=== PATIENT | male | born 1955 | race Caucasian/White ===

== ENCOUNTER → 2017-05-07 11:08 | Outpatient (CLI) | payer MEDICARE, SELFPAY ==
[2017-05-07 12:42] LABS: Absolute Lymphocyte Count 1.14 X10^3/ul (0.83-4.51); Basophil# 0.04 X10^3/uL; Basophil% 1.1 % (0-1); Eosinophil# 0.05 X10^3/uL; Eosinophils% 1.4 % (0-5); Hematocrit 32.4 % (40-54); Hemoglobin 11.1 g/dl (13.0-16.5); Lymphocyte # 1.14 X10^3/ul (4.0); Lymphocyte % 32.7 % (19-41); Mean Corp Hgb Conc 34.3 g/gl (32-36); Mean Corpuscular Hgb 29.1 pg (27.0-32.0); Mean Platelet Vol. 11.2 fl (6.2-12.0); Monocyte# 0.31 X10^3/uL; Monocyte% 8.9 % (0-10); Neutrophil # 1.95 X10^3/uL (2.7-7.7); Neutrophil % 55.9 % (47-70); Platelet Count 145 K/mm3 (150-450); RBC Distribution Width CV 14.2 % (11.6-14.6); Red Blood Count 3.81 M/mm3 (4.6-6.2); White Blood Count 3.5 K/mm3 (4.4-11.0)
[2017-05-07 12:45] LABS: Color, Urine Yellow (Yellow); Glucose, Dipstick Normal (Normal); Ketone-Dipstick Negative (Negative); Leukocyte Esterase-Dipstick 25 /ul (Negative); Nitrite-Dipstick Negative (Negative); Occult Blood-Urine Negative /ul (Negative); POSITIVE COUNT NO; POSITIVE DIFFERENTIAL NO; POSITIVE MORPHOLOGY NO; Protein-Dipstick 15 mg/dl (Negative); Urine Bilirubin Dipstick Negative (Negative); Urine Clarity Clear (Clear); Urine Urobilinogen Normal (Normal)
[2017-05-07 13:36] LABS: ALB/GLOB Ratio 0.8 RATIO (0.9-2.4); AST(SGOT) 12 U/L (15-37); Alanine Aminotransfer ALT/SGPT 23 U/L (16-61); Albumin, Serum 3.5 g/dL (3.2-5.0); Alkaline Phosphatase 86 U/L (45-117); Anion Gap 9 (5-15); BUN 18 mg/dL (7-18); BUN/Creat Ratio 17.1 RATIO (10-20); Calcium,Total 8.1 mg/dL (8.5-10.1); Chloride 98 mmol/L (98-107); Cholesterol 145 mg/dL (200); Creatinine, Serum 1.05 mg/dL (0.70-1.30); EST Glomerular Filtration Rate 76 mL/min (>60); Est Glom Filt Rate - Afr Amer 92 mL/min (>60); Globulin 4.2 g/dL (2.2-4.2); Glucose 88 mg/dL (74-106); High Density Lipoprotein 49 mg/dL; PSA,Total - Annual Screen 1.54 ng/mL (0.00-4.00); Potassium 3.8 mmol/L (3.5-5.1); Protein, Total 7.7 g/dL (6.4-8.2); Sodium Level 130 mmol/L (136-145); Triglycerides 66 mg/dL; Very Low Density Lipoprotein 13 mg/dL (5-40)
== END ==
DX: Z00.00 Encounter for general adult medical examination without abnormal findings (principal); I10 Essential (primary) hypertension; E53.8 Deficiency of other specified B group vitamins
CPT/HCPCS: 36415; 80053; 80061; 81002; 84153; 85025; G0103

== ENCOUNTER 2017-08-18 11:08 | Emergency (ER) | payer MEDICARE, SELFPAY ==
[2017-08-18 11:08] VITALS: BP 63/51; PULSE 76; RESP 16; TEMP 36.6; O2SAT 97; BMI 30.7
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
[2017-08-18 11:12] VITALS: O2SAT 95
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
[2017-08-18] MEDS: 0.9% Normal Saline 1,000 ML 1000 ML IV ×2 (11:19→11:20)
[2017-08-18 11:23] LABS: Absolute Lymphocyte Count 1.04 X10^3/ul (0.83-4.51); Absolute Neutrophil Count 3.8 X10^3/uL (2.0-7.7); Basophil# 0.02 X10^3/uL; Basophil% 0.4 % (0-1); Eosinophil# 0.08 X10^3/uL; Eosinophils% 1.4 % (0-5); Hematocrit 26.2 % (40-54); Lymphocyte # 1.04 X10^3/ul (4.0); Lymphocyte % 18.5 % (19-41); Mean Corp Hgb Conc 34.4 g/gl (32-36); Mean Corpuscular Hgb 29.8 pg (27.0-32.0); Mean Corpuscular Volume 86.8 fL (80-94); Mean Platelet Vol. 10.9 fl (6.2-12.0); Monocyte# 0.72 X10^3/uL; Monocyte% 12.8 % (0-10); Neutrophil # 3.76 X10^3/uL (2.7-7.7); Neutrophil % 66.7 % (47-70); Platelet Count 211 K/mm3 (150-450); RBC Distribution Width CV 14.1 % (11.6-14.6); RBC Distribution Width SD 42.9 fl (35.1-43.9); Red Blood Count 3.02 M/mm3 (4.6-6.2); White Blood Count 5.6 K/mm3 (4.4-11.0)
[2017-08-18 11:24] LABS: POSITIVE COUNT NO; POSITIVE DIFFERENTIAL NO; POSITIVE MORPHOLOGY NO
[2017-08-18 11:30] LABS: International Normalized Ratio 1.3; Prothrombin Time (Protime)PT. 15.8 SECONDS (11.7-14.9)
[2017-08-18 11:31] LABS: Partial Thromboplast Time 45.6 Seconds (24.1-36.2)
[2017-08-18 11:38] LABS: AST(SGOT) 33 U/L (15-37); Alanine Aminotransfer ALT/SGPT 16 U/L (16-61); Albumin, Serum 2.7 g/dL (3.2-5.0); Alkaline Phosphatase 82 U/L (45-117); Anion Gap 10 (5-15); BUN 53 mg/dL (7-18); BUN/Creat Ratio 19.7 RATIO (10-20); Bilirubin, Direct 0.14 mg/dL (0.00-0.30); Calcium,Total 8.3 mg/dL (8.5-10.1); Chloride 103 mmol/L (98-107); Creatinine, Serum 2.69 mg/dL (0.70-1.30); EST Glomerular Filtration Rate 26 mL/min (>60); Est Glom Filt Rate - Afr Amer 31 mL/min (>60); Estimated Creatinine Clearance 29.78 ml/min; Globulin 4.5 g/dL (2.2-4.2); Glucose 86 mg/dL (74-106); Potassium 4.6 mmol/L (3.5-5.1); Protein, Total 7.2 g/dL (6.4-8.2); Sodium Level 131 mmol/L (136-145)
[2017-08-18 11:43] LABS: Alcohol, Blood (Medical)-Serum < 3.0 mg/dL
[2017-08-18 12:09] VITALS: BP 100/60; PULSE 66; RESP 15; O2SAT 99
[2017-08-18 13:00] VITALS: BP 127/76; PULSE 70; RESP 14; O2SAT 98
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
--- NOTE | 2017-08-18 13:30 | ED.DEP ---
ED Disposition - Plan for ED Patient: Disposition: Home or Assisted Living Chief Complaint: Fall Instructions: ED Insufficiency Renal, ED Dehydration Referrals: Joaquin Stanford [Primary Care Provider] - As soon as possible
[2017-08-18 14:00] VITALS: BP 107/89; PULSE 82; RESP 19; O2SAT 98
== END 2017-08-18 14:12 | disposition home or self-care (01) ==
PROVIDERS: Emergency Provider Emergency Medicine
DX: I95.9 Hypotension, unspecified (principal); N17.9 Acute kidney failure, unspecified; J44.9 Chronic obstructive pulmonary disease, unspecified; I10 Essential (primary) hypertension; F32.9 Major depressive disorder, single episode, unspecified; F41.9 Anxiety disorder, unspecified; E87.1 Hypo-osmolality and hyponatremia; Z72.0 Tobacco use; Z79.899 Other long term (current) drug therapy
CPT/HCPCS: 70450; 80048; 80076; 80320; 85025; 85610; 85730; 93005; 96360; 99285; J7030; A4216; G0480

== ENCOUNTER → 2017-08-28 10:07 | Outpatient (CLI) | payer MEDICARE, SELFPAY ==
--- NOTE | 2017-08-28 08:46 | ECHOD_ITS ---
Reason For Study: SOB, HTN Procedure This was a 2D Doppler, Color Flow transthoracic echocardiogram. Exam performed in department. Left Ventricle Normal size and thickness. The estimated ejection fraction is 60 %. Normal diastology for age. Septal motion consistent with IVCD. No regional wall motion abnormalities noted. Right Ventricle Mildly dilated right ventricle. Normal systolic function. Atria Normal left atrium. Normal right atrium. Normal atrial septum. Mitral Valve Mild diffuse mitral valve thickening. Mild (1+) mitral valve insufficiency. Tricuspid Valve Normal tricuspid valve. Unable to estimate RV systolic pressure due to inadequate jet, pulmonary artery pressure probably normal. Aortic Valve Trisinus/trileaflet aortic valve. Mild diffuse aortic valve thickening. Pulmonic Valve Normal pulmonic valve. Trivial pulmonic valve insufficiency. Great Vessels Normal aortic root. Normal arch. Normal inferior vena cava. Inferior vena cava collapse with sniff. Pericardium/Pleural No pericardial effusion. MMode/2D Measurements & Calculations LVIDd: 3.8 cm IVSd: 0.77 cm Ao root diam: 3.1 cm LVIDs: 2.7 cm LVPWd: 0.79 cm LA dimension: 2.9 cm RVDd: 4.1 cm FS: 28.3 % LAV(MOD-bp): 54.7 ml LA A4 area: 16.0 cm2 RA A4 area: 15.3 cm2 LAV(MOD-bp) Indexed: 29.3 ml/m2 LAV(MOD-sp2): 65.9 ml LAV(MOD-sp4): 40.6 ml Doppler Measurements & Calculations MV E max santana: 81.5 cm/sec Lat Peak E' Santana: 9.3 cm/sec Med Peak E' Santana: 6.4 cm/sec MV A max santana: 67.7 cm/sec E/E' lat: 8.8 E/E' med: 12.7 MV E/A: 1.2 Ao V2 max: 147.9 cm/sec LV V1 max: 120.5 cm/sec PA V2 max: 91.8 cm/sec Ao max P.8 mmHg LV V1 max P.8 mmHg Interpretation Summary The estimated ejection fraction is 60 %. Mild (1+) mitral valve insufficiency. Unable to estimate RV systolic pressure due to inadequate jet, pulmonary artery pressure probably normal. Compared to echo report dated 05/01/2012, no appreciable changes noted. Ordering Physician: Joaquin Stanford Performed By: Archana Rudolph RDCS, RVT
--- NOTE | 2017-08-28 10:07 | DT_ITS ---
This patient was seen during an EMR downtime August 25, 2017 - September 01, 2017. This patient may have a combination of paper and electronic documentation or all paper documentation. All documentation is viewable within the e-chart portion of [employer] for each patient visit.
== END ==
PROVIDERS: Visit Provider Family Medicine
DX: R06.00 Dyspnea, unspecified (principal); I10 Essential (primary) hypertension
CPT/HCPCS: 93306

== ENCOUNTER → 2018-05-21 12:46 | Outpatient (CLI) | payer MEDICARE, SELFPAY ==
[2018-04-29 16:01] VITALS: BMI 23.6
[2018-05-21 14:06] LABS: Color, Urine Yellow (Yellow); Glucose, Dipstick Normal (Normal); Ketone-Dipstick Negative (Negative); Leukocyte Esterase-Dipstick Negative /ul (Negative); Nitrite-Dipstick Negative (Negative); Occult Blood-Urine Negative /ul (Negative); Protein-Dipstick Negative (Negative); Urine Bilirubin Dipstick Negative (Negative); Urine Clarity Clear (Clear); Urine Urobilinogen Normal (Normal); Urine pH 6.5 (5.0 - 8.0)
[2018-05-21 14:08] LABS: Absolute Lymphocyte Count 1.85 X10^3/ul (0.83-4.51); Absolute Neutrophil Count 3.2 X10^3/uL (2.0-7.7); Basophil# 0.06 X10^3/uL; Basophil% 1.1 % (0-1); Eosinophil# 0.11 X10^3/uL; Eosinophils% 1.9 % (0-5); Hematocrit 30.8 % (40-54); Hemoglobin 10.1 g/dl (13.0-16.5); Lymphocyte # 1.85 X10^3/ul (4.0); Lymphocyte % 32.6 % (19-41); Mean Corp Hgb Conc 32.8 g/gl (32-36); Mean Corpuscular Hgb 28.8 pg (27.0-32.0); Mean Corpuscular Volume 87.7 fL (80-94); Mean Platelet Vol. 10.5 fl (6.2-12.0); Monocyte% 8.8 % (0-10); Neutrophil # 3.15 X10^3/uL (2.7-7.7); Neutrophil % 55.6 % (47-70); POSITIVE COUNT NO; POSITIVE DIFFERENTIAL NO; POSITIVE MORPHOLOGY NO; Platelet Count 265 K/mm3 (150-450); RBC Distribution Width CV 15.3 % (11.6-14.6); RBC Distribution Width SD 48.5 fl (35.1-43.9); Red Blood Count 3.51 M/mm3 (4.6-6.2); White Blood Count 5.7 K/mm3 (4.4-11.0)
[2018-05-21 14:21] LABS: ALB/GLOB Ratio 0.8 RATIO (0.9-2.4); AST(SGOT) 21 U/L (15-37); Alanine Aminotransfer ALT/SGPT 16 U/L (16-61); Albumin, Serum 3.8 g/dL (3.2-5.0); Alkaline Phosphatase 89 U/L (45-117); Anion Gap 11 (5-15); BUN 14 mg/dL (7-18); BUN/Creat Ratio 10.4 RATIO (10-20); Calcium,Total 8.9 mg/dL (8.5-10.1); Chloride 102 mmol/L (98-107); Creatinine, Serum 1.35 mg/dL (0.70-1.30); EST Glomerular Filtration Rate 57 mL/min (>60); Est Glom Filt Rate - Afr Amer 69 mL/min (>60); Globulin 4.5 g/dL (2.2-4.2); Glucose 78 mg/dL (74-106); PSA,Total - Annual Screen 0.94 ng/mL (0.00-4.00); Potassium 4.8 mmol/L (3.5-5.1); Protein, Total 8.3 g/dL (6.4-8.2); Sodium Level 136 mmol/L (136-145)
== END ==
PROVIDERS: Referring Provider Family Medicine; Visit Provider Family Medicine
DX: Z00.00 Encounter for general adult medical examination without abnormal findings (principal); Z12.5 Encounter for screening for malignant neoplasm of prostate; E53.8 Deficiency of other specified B group vitamins
CPT/HCPCS: 36415; 80053; 81002; 84153; 85025; G0103

== ENCOUNTER → 2018-05-22 13:41 | Outpatient (CLI) | payer MEDICARE, SELFPAY ==
[2018-04-29 16:01] VITALS: BMI 23.6
[2018-05-22 16:15] LABS: Ferritin 175 ng/mL (26-388); Iron 74 ug/dL (65-175)
== END ==
PROVIDERS: Referring Provider Family Medicine; Visit Provider Family Medicine
DX: D64.9 Anemia, unspecified (principal)
CPT/HCPCS: 36415; 82728; 83540

== ENCOUNTER 2018-06-26 18:23 | Emergency (ER) | payer MEDICARE, SELFPAY ==
[2018-04-29 16:01] VITALS: BMI 23.6
[2018-06-26 18:24] VITALS: BP 171/108; PULSE 77; RESP 18; TEMP 36.4; O2SAT 97; BMI 24.0
[2018-06-26 18:53] VITALS: BP 162/109
[2018-06-26] MEDS: Lidocaine 5% Patch 1 PATCH TOPICAL (19:33)
[2018-06-26] MEDS: Ketorolac 15 MG/ML Vial IV (19:37)
--- NOTE | 2018-06-26 21:15 | ED.DCSUM_ITS ---
History of Present Illness Chief Complaint: Lower Extremity Injury Detail of Chief Complaint: Chief complaint is right lower leg pain Informant: Patient Onset: Weeks - Onset 6 weeks ago Context: Sudden Onset Timing: Continuous Quality: Burning searing pain Location: Distribution of S1 distal head of the right fibula Current Severity: Moderate Maximum Severity: Severe Worsened by: Touch and movement Relieved by: Nothing Associated Symptoms: No bowel, bladder symptoms and no saddle paresthesia Narrative: Patient is a 61-year-old male who has degenerative disc disease and is seen by Dr. Gordon and pain management. He is presently on morphine, Percocet and 3200 mg of gabapentin. He reports pain for 6 weeks. He is unable to tolerate the pain. He states the medicine is not working. He denies bowel or bladder dy sfunction. He denies saddle paresthesia or anesthesia. He denies quadricep weakness going up or down steps. He denies foot drop. He denies symptoms of claudication. He denies fever, chills night sweats. He denies weight gain or weight loss. He does report discoloration of his right leg. He states there is a groove and points to the lateral aspect of his gastrocnemius muscle. Prior similar symptoms: Yes Recent Illness/Hospitalization: No - Past Medical History (1) Degenerative joint disease (DJD) of lumbar spine Status: Acute (2) Cervical disc disease Status: Acute (3) Essential (primary) hypertension Status: Chronic (4) Nicotine dependence Status: Chronic Past Medical History - Allergies and Home Meds Allergies/Adverse Reactions: Allergies butorphanol tartrate [From Stadol] Allergy (Verified 06/26/18 18:28) Anaphylaxis phenobarbital Allergy (Verified 06/26/18 18:28) Anaphylaxis fentanyl Adverse Reaction (Intermediate, Verified 06/26/18 18:28) Other PT STATES MED CHANGES PERSONALITY Primary Care Physician: Joaquin Stanford [Primary Care Provider] - Prior records reviewed: Yes Surgical History: for stomach, probable ulcer details unclear Lives: Spouse/ Significant Other Smoking Status: Current every day smoker Alcohol: None Review of Systems General: Denies: Chills, Fever, Malaise, Subjective, Sweats, Weight loss Cardiovascular: Denies: Chest pain, Palpitations Respiratory: Denies: Dyspnea, Cough, Dyspnea on exertion Gastrointestinal: Denies: Abdominal pain, Nausea, Vomiting, Diarrhea Musculoskeletal: Reports: Back pain, Extremity Pain. Denies: Myalgias, Ar thralgias, Neck pain, Swelling, -, - Neurological: Denies: Headache, Weakness, Parasthesia, Numbness, -, - Hematologic: Denies: Easy bruising, Easy bleeding Allergy: Denies: Uticaria Physical Exam Vital Signs/Narrative: Vital Signs Temp Pulse Resp BP Pulse Ox 06/26/18 18:53 162/109 H 06/26/18 18:24 97.6 F L 77 18 171/108 H 97 Inital Vital Signs reviewed: Yes General: Well nourished, Well developed, No Acute Distress Head: Normocephalic, Atraumatic Eyes: Perrl, EOMI. Negative for: Pale conjunctiva, Scleral icterus, - ENT: Moist mucous membranes, No rhinorrhea Neck: Supple, Nontender, No lymphadenopathy, No JVD, - Cardiovascular: Regular rate, Regular rhythm, No murmurs, Normal S1, Normal S2 Respiratory: No distress, CTA bilaterally, Chest nontender Rectal: - - Normal perianal sensation. Back: Nontender, Normal Inspection Extremities: No edema, Tenderness. Negative for: Calf Tenderness Skin: Normal color, No rash. Negative for: Cyanosis, Jaundice Neurological: Alert, Oriented x3, Cranial nerves II-XII grossly intact, Normal Strength, Normal Sensation, Normal DTR - Patella deep tendon reflex 1+ and symmetric. Ankle reflex diminished on the right compared to the left., Normal Gait - NO foot drop, able to walk on heels and toes. able to preform one leg squats right and left Psychological: Agitated Diagnostic/Tx/Re-eval - Medical Decision Making Differential would include neuropathy, S1 disc disease, inflammation of the peroneal nerve. Patient medicated with IV toradol and lidocaine patch. Will refer to neurology for further testing to determine if pain involving peroneal nerve. ED Disposition - Plan for ED Patient: Disposition: Home or Assisted Living Diagnosis: Neuropathy of right lower extremity Instructions: ED Neuropathy Peripheral Referrals: Joaquin Stanford [Primary Care Provider] - Joshua Slaughter MD [STAFF PHYSICIAN] -
== END 2018-06-26 22:02 | disposition home or self-care (01) ==
PROVIDERS: Emergency Provider Emergency Medicine
DX: G57.91 Unspecified mononeuropathy of right lower limb (principal); I10 Essential (primary) hypertension; F17.200 Nicotine dependence, unspecified, uncomplicated; Z79.899 Other long term (current) drug therapy
CPT/HCPCS: 96374; 99284; A4216

== ENCOUNTER → 2018-10-29 16:36 | Outpatient (CLI) | payer MEDICARE, SELFPAY ==
--- NOTE | 2018-10-29 16:41 | RAD_ITS ---
HISTORY:low back and right leg pain, getting worse low back and right leg pain, getting worse EXAMINATION/TECHNIQUE: XR Spine Lumbar Min 4 Views: COMPARISON: December 25, 2016 FINDINGS: VERTEBRAE: Preserved vertebral body height. No fracture. Grade 1 anterior spondylolisthesis L4 on L5 which was seen on the prior study and is similar Degenerative changes of the posterior elements. Preservation of the normal lumbar lordosis. Dextroscoliosis similar to prior study DISCS: Degenerative changes are noted. Decreased disc space at the level of L4-5 and L3-4 similar prior study INCLUDED ABDOMEN: Postsurgical changes are seen within the epigastrium similar to prior study RAD/L/S Spine Min 4 Views IMPRESSION: Degenerative changes. No acute fracture. There is dextroscoliosis similar to prior study. There is also grade 1 anterior spondylolisthesis L4 on L5 which is similar to prior study. at 1929 Reported and signed by: Aileen Fajardo DO Electronically Signed: Aileen Fajardo DO at 19:28 EDT Tel , Service support ,
== END ==
PROVIDERS: Referring Provider Family Medicine; Visit Provider Family Medicine
DX: M51.16 Intervertebral disc disorders with radiculopathy, lumbar region (principal)
CPT/HCPCS: 72110

== ENCOUNTER → 2019-05-28 08:44 | Outpatient (CLI) | payer MEDICARE, SELFPAY ==
[2019-05-28 11:03] LABS: Absolute Lymphocyte Count 1.66 X10^3/uL (0.83-4.51); Absolute Neutrophil Count 3.1 X10^3/uL (2.0-7.7); Basophil# 0.05 X10^3/uL; Basophil% 0.9 % (0-1); Eosinophil# 0.24 X10^3/uL; Eosinophils% 4.5 % (0-5); Hematocrit 31.4 % (40-54); Hemoglobin 10.7 g/dL (13.0-16.5); Lymphocyte # 1.66 X10^3/ul (4.0); Lymphocyte % 30.8 % (19-41); Mean Corp Hgb Conc 34.1 g/dL (32-36); Mean Corpuscular Hgb 28.8 pg (27.0-32.0); Mean Corpuscular Volume 84.4 fL (80-94); Mean Platelet Vol. 11.8 fl (6.2-12.0); Monocyte# 0.37 X10^3/uL; Monocyte% 6.9 % (0-10); NRBC Flagged by Analyzer 0 % (0-5); Neutrophil # 3.06 X10^3/uL (2.7-7.7); Neutrophil % 56.7 % (47-70); Platelet Count 139 K/mm3 (150-450); RBC Distribution Width CV 14.6 % (11.6-14.6); RBC Distribution Width SD 45.1 fl (35.1-43.9); Red Blood Count 3.72 M/mm3 (4.6-6.2); White Blood Count 5.4 K/mm3 (4.4-11.0)
[2019-05-28 11:17] LABS: ALB/GLOB Ratio 0.9 RATIO (0.9-2.4); AST(SGOT) 21 U/L (15-37); Alanine Aminotransfer ALT/SGPT 18 U/L (16-61); Albumin, Serum 3.6 g/dL (3.2-5.0); Alkaline Phosphatase 88 U/L (45-117); Anion Gap 10 (5-15); BUN 19 mg/dL (7-18); BUN/Creat Ratio 15.8 RATIO (10-20); Bilirubin, Direct 0.16 mg/dL (0.00-0.30); Chloride 97 mmol/L (98-107); EST Glomerular Filtration Rate 65 mL/min (>60); Est Glom Filt Rate - Afr Amer 79 mL/min (>60); Globulin 3.9 g/dL (2.2-4.2); Glucose 95 mg/dL (74-106); PSA,Total - Annual Screen 0.93 ng/mL (0.00-4.00); Protein, Total 7.5 g/dL (6.4-8.2); Sodium Level 127 mmol/L (136-145)
[2019-05-28 11:22] LABS: Vitamin B12 534 pg/mL (211-911)
== END ==
PROVIDERS: Referring Provider Family Medicine; Visit Provider Family Medicine
DX: Z00.00 Encounter for general adult medical examination without abnormal findings (principal); D64.9 Anemia, unspecified; I10 Essential (primary) hypertension; E53.8 Deficiency of other specified B group vitamins; Z12.5 Encounter for screening for malignant neoplasm of prostate; Z13.89 Encounter for screening for other disorder
CPT/HCPCS: 36415; 80053; 80061; 82248; 82607; 84153; 85025; G0103

== ENCOUNTER → 2019-11-26 07:15 | Outpatient (CLI) | payer MEDICARE, SELFPAY ==
--- NOTE | 2019-11-15 16:41 | RAD_ITS ---
STUDY: X-RAY CHEST REASON FOR EXAM: Male, 64 years old. Chest pain and cough TECHNIQUE: PA and lateral views of the chest. COMPARISON: None. FINDINGS: The lungs are clear and expanded. There is no demonstrated pleural abnormality. Normal size heart. Normal mediastinum and andrzej. Normal visualized pulmonary arteries. Normal visualized aortic arch and descending thoracic aorta. Normal visualized thoracic spine. Normal visualized ribs, clavicles, and shoulders. There is no demonstrated abnormality of the visualized soft tissue structures of the upper abdomen. RAD/Chest PA and Lateral IMPRESSION: No acute pulmonary process Electronically Signed: Serafin Liao MD at 17:20 EDT , Service support ,
[2019-11-15 17:55] LABS: Absolute Lymphocyte Count 1.22 X10^3/uL (0.83-4.51); Basophil# 0.05 X10^3/uL; Eosinophil# 0.38 X10^3/uL; Eosinophils% 7.5 % (0-5); Hematocrit 31.9 % (40-54); Hemoglobin 10.8 g/dL (13.0-16.5); Lymphocyte # 1.22 X10^3/ul (4.0); Lymphocyte % 24.1 % (19-41); Mean Corp Hgb Conc 33.9 g/dL (32-36); Mean Corpuscular Hgb 28.9 pg (27.0-32.0); Mean Corpuscular Volume 85.3 fL (80-94); Mean Platelet Vol. 10.7 fl (6.2-12.0); Monocyte# 0.44 X10^3/uL; Monocyte% 8.7 % (0-10); NRBC Flagged by Analyzer 0 % (0-5); Neutrophil # 2.96 X10^3/uL (2.7-7.7); Neutrophil % 58.5 % (47-70); Platelet Count 243 K/mm3 (150-450); RBC Distribution Width CV 14.6 % (11.6-14.6); RBC Distribution Width SD 45.2 fl (35.1-43.9); Red Blood Count 3.74 M/mm3 (4.6-6.2); White Blood Count 5.1 K/mm3 (4.4-11.0)
[2019-11-15 18:33] LABS: Anion Gap 6 (5-15); BUN 12 mg/dL (7-18); BUN/Creat Ratio 9.5 RATIO (10-20); Calcium,Total 8.8 mg/dL (8.5-10.1); Chloride 100 mmol/L (98-107); Creatinine, Serum 1.26 mg/dL (0.70-1.30); EST Glomerular Filtration Rate 61 mL/min (>60); Est Glom Filt Rate - Afr Amer 74 mL/min (>60); Glucose 124 mg/dL (74-106); Potassium 4.3 mmol/L (3.5-5.1); Sodium Level 127 mmol/L (136-145)
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
== END ==
LOC: PAT 12-24 13:15
PROVIDERS: Referring Provider Orthopaedic Surgery; Visit Provider Orthopaedic Surgery
DX: Z01.818 Encounter for other preprocedural examination (principal); Z01.810 Encounter for preprocedural cardiovascular examination; Z01.811 Encounter for preprocedural respiratory examination; M25.522 Pain in left elbow; F32.9 Major depressive disorder, single episode, unspecified; M81.0 Age-related osteoporosis without current pathological fracture; I10 Essential (primary) hypertension; K21.9 Gastro-esophageal reflux disease without esophagitis; F17.210 Nicotine dependence, cigarettes, uncomplicated; Z79.899 Other long term (current) drug therapy; Z79.51 Long term (current) use of inhaled steroids
CPT/HCPCS: 36415; 71046; 80048; 85025

== ENCOUNTER → 2019-11-30 11:46 | Outpatient (CLI) | payer MEDICARE, SELFPAY ==
[2019-11-30 16:10] LABS: Absolute Lymphocyte Count 1.62 X10^3/uL (0.83-4.51); Absolute Neutrophil Count 2.1 X10^3/uL (2.0-7.7); Basophil# 0.04 X10^3/uL; Basophil% 0.9 % (0-1); Eosinophil# 0.16 X10^3/uL; Eosinophils% 3.7 % (0-5); Hematocrit 31.6 % (40-54); Hemoglobin 10.3 g/dL (13.0-16.5); Lymphocyte # 1.62 X10^3/ul (4.0); Lymphocyte % 37.9 % (19-41); Mean Corp Hgb Conc 32.6 g/dL (32-36); Mean Corpuscular Hgb 28.1 pg (27.0-32.0); Mean Corpuscular Volume 86.3 fL (80-94); Monocyte# 0.38 X10^3/uL; Monocyte% 8.9 % (0-10); NRBC Flagged by Analyzer 0 % (0-5); Neutrophil # 2.07 X10^3/uL (2.7-7.7); Neutrophil % 48.4 % (47-70); Platelet Count 159 K/mm3 (150-450); RBC Distribution Width CV 14.9 % (11.6-14.6); RBC Distribution Width SD 47.5 fl (35.1-43.9); Red Blood Count 3.66 M/mm3 (4.6-6.2); White Blood Count 4.3 K/mm3 (4.4-11.0)
[2019-11-30 16:26] LABS: Anion Gap 4 (5-15); BUN 14 mg/dL (7-18); BUN/Creat Ratio 14.7 RATIO (10-20); Calcium,Total 8.4 mg/dL (8.5-10.1); Chloride 107 mmol/L (98-107); Creatinine, Serum 0.95 mg/dL (0.70-1.30); EST Glomerular Filtration Rate 85 mL/min (>60); Est Glom Filt Rate - Afr Amer 103 mL/min (>60); Glucose 74 mg/dL (74-106); Sodium Level 136 mmol/L (136-145)
== END ==
PROVIDERS: Referring Provider Family Medicine; Visit Provider Family Medicine
DX: E87.1 Hypo-osmolality and hyponatremia (principal); D64.9 Anemia, unspecified
CPT/HCPCS: 36415; 80048; 85025

== ENCOUNTER → 2020-04-24 08:05 | Outpatient (CLI) | payer MEDICARE, SELFPAY ==
[2020-04-24 09:50] LABS: Absolute Lymphocyte Count 1.95 X10^3/uL (0.83-4.51); Absolute Neutrophil Count 2.2 X10^3/uL (2.0-7.7); Basophil# 0.03 X10^3/uL; Basophil% 0.6 % (0-1); Eosinophils% 4.1 % (0-5); Hematocrit 28.9 % (40-54); Hemoglobin 9.5 g/dL (13.0-16.5); Lymphocyte # 1.95 X10^3/ul (4.0); Lymphocyte % 39.7 % (19-41); Mean Corp Hgb Conc 32.9 g/dL (32-36); Mean Corpuscular Hgb 28.5 pg (27.0-32.0); Mean Corpuscular Volume 86.8 fL (80-94); Mean Platelet Vol. 10.8 fl (6.2-12.0); Monocyte# 0.57 X10^3/uL; Monocyte% 11.6 % (0-10); NRBC Flagged by Analyzer 0 % (0-5); Neutrophil # 2.15 X10^3/uL (2.7-7.7); Neutrophil % 43.8 % (47-70); Platelet Count 171 K/mm3 (150-450); RBC Distribution Width CV 14.9 % (11.6-14.6); RBC Distribution Width SD 47.8 fl (35.1-43.9); Red Blood Count 3.33 M/mm3 (4.6-6.2); White Blood Count 4.9 K/mm3 (4.4-11.0)
[2020-04-24 10:08] LABS: ALB/GLOB Ratio 0.8 RATIO (0.9-2.4); AST(SGOT) 44 U/L (15-37); Alanine Aminotransfer ALT/SGPT 21 U/L (16-61); Albumin, Serum 3.1 g/dL (3.2-5.0); Alkaline Phosphatase 118 U/L (45-117); Anion Gap 8 (5-15); BUN 23 mg/dL (7-18); BUN/Creat Ratio 18.9 RATIO (10-20); Calcium,Total 8.2 mg/dL (8.5-10.1); Chloride 99 mmol/L (98-107); Cholesterol 120 mg/dL (200); Creatinine, Serum 1.22 mg/dL (0.70-1.30); EST Glomerular Filtration Rate 64 mL/min (>60); Est Glom Filt Rate - Afr Amer 77 mL/min (>60); Globulin 3.7 g/dL (2.2-4.2); Glucose 66 mg/dL (74-106); High Density Lipoprotein 42 mg/dL; Potassium 4.5 mmol/L (3.5-5.1); Protein, Total 6.8 g/dL (6.4-8.2); Sodium Level 129 mmol/L (136-145); Triglycerides 154 mg/dL; Very Low Density Lipoprotein 31 mg/dL (5-40)
== END ==
PROVIDERS: Referring Provider Family Medicine; Visit Provider Family Medicine
DX: Z00.00 Encounter for general adult medical examination without abnormal findings (principal); D64.9 Anemia, unspecified; E53.8 Deficiency of other specified B group vitamins; Z13.89 Encounter for screening for other disorder; I10 Essential (primary) hypertension
CPT/HCPCS: 36415; 80053; 80061; 85025

== ENCOUNTER → 2020-05-22 09:16 | Outpatient (CLI) | payer MEDICARE, SELFPAY ==
[2020-05-22 10:53] LABS: Ferritin 90 ng/mL (26-388); Iron 57 ug/dL (65-175)
== END ==
LOC: LAB 09:17 → MTLAB 09:18
PROVIDERS: Referring Provider Family Medicine; Visit Provider Family Medicine
DX: Z00.00 Encounter for general adult medical examination without abnormal findings (principal); D64.9 Anemia, unspecified; I10 Essential (primary) hypertension; E53.8 Deficiency of other specified B group vitamins; Z13.89 Encounter for screening for other disorder
CPT/HCPCS: 36415; 82728; 83540

== ENCOUNTER → 2020-05-22 09:31 | Outpatient (CLI) | payer MEDICARE, SELFPAY | PROVIDERS: Visit Provider Family Medicine | DX: Z00.00 Encounter for general adult medical examination without abnormal findings (principal) ==

== ENCOUNTER → 2020-10-20 09:46 | Outpatient (CLI) | payer MEDICARE, SELFPAY ==
[2020-10-20 12:09] LABS: Absolute Lymphocyte Count 1.68 X10^3/uL (0.83-4.51); Absolute Neutrophil Count 1.7 X10^3/uL (2.0-7.7); Basophil# 0.04 X10^3/uL; Eosinophil# 0.12 X10^3/uL; Hematocrit 34.3 % (40-54); Hemoglobin 11.2 g/dL (13.0-16.5); Lymphocyte # 1.68 X10^3/ul (0.83-4.51); Lymphocyte % 42.5 % (19-41); Mean Corp Hgb Conc 32.7 g/dL (32-36); Mean Corpuscular Hgb 28.1 pg (27.0-32.0); Mean Corpuscular Volume 86.2 fL (80-94); Mean Platelet Vol. 10.8 fl (6.2-12.0); Monocyte# 0.39 X10^3/uL; Monocyte% 9.9 % (0-10); NRBC Flagged by Analyzer 0 % (0-5); Neutrophil # 1.71 X10^3/uL (2.7-7.7); Neutrophil % 43.3 % (47-70); Platelet Count 200 K/mm3 (150-450); RBC Distribution Width CV 15.8 % (11.6-14.6); RBC Distribution Width SD 49.7 fl (35.1-43.9); Red Blood Count 3.98 M/mm3 (4.6-6.2)
[2020-10-20 12:35] LABS: ALB/GLOB Ratio 0.8 RATIO (0.9-2.4); AST(SGOT) 23 U/L (15-37); Alanine Aminotransfer ALT/SGPT 28 U/L (16-61); Albumin, Serum 3.6 g/dL (3.2-5.0); Alkaline Phosphatase 113 U/L (45-117); Anion Gap 7 (5-15); BUN 14 mg/dL (7-18); BUN/Creat Ratio 13.9 RATIO (10-20); Calcium,Total 8.2 mg/dL (8.5-10.1); Chloride 98 mmol/L (98-107); Cholesterol 150 mg/dL (200); Creatinine, Serum 1.01 mg/dL (0.70-1.30); EST Glomerular Filtration Rate 79 mL/min (>60); Est Glom Filt Rate - Afr Amer 96 mL/min (>60); Globulin 4.5 g/dL (2.2-4.2); Glucose 82 mg/dL (74-106); High Density Lipoprotein 48 mg/dL; PSA,Total - Annual Screen 1.29 ng/mL (0.00-4.00); Potassium 4.1 mmol/L (3.5-5.1); Protein, Total 8.1 g/dL (6.4-8.2); Sodium Level 129 mmol/L (136-145); Triglycerides 83 mg/dL; Very Low Density Lipoprotein 17 mg/dL (5-40)
== END ==
PROVIDERS: Referring Provider Family Medicine; Visit Provider Family Medicine
DX: D64.9 Anemia, unspecified (principal); I10 Essential (primary) hypertension; E53.8 Deficiency of other specified B group vitamins; Z13.89 Encounter for screening for other disorder; Z12.5 Encounter for screening for malignant neoplasm of prostate
CPT/HCPCS: 36415; 80053; 80061; 84153; 85025; G0103

== ENCOUNTER 2023-02-01 08:40 | Emergency (ER) | payer MEDICARE, SELFPAY ==
[2023-02-01] VITALS (15 sets, daily range): BP systolic 121–142; BP diastolic 80–109; PULSE 92–109; RESP 17–29; TEMP 36.1; O2SAT 75–100
--- NOTE | 2023-02-01 09:08 | EKG12_ITS ---
Test Reason : SOB Blood Pressure : / mmHG Vent. Rate : 094 BPM Atrial Rate : 094 BPM P-R Int : 164 ms QRS Dur : 136 ms QT Int : 406 ms P-R-T Axes : 064 -01 -08 degrees QTc Int : 507 ms Normal sinus rhythm Possible Left atrial enlargement Left ventricular hypertrophy with QRS widening and repolarization abnormality ( Tanvir product ) Cannot rule out Septal infarct , age undetermined Abnormal ECG Confirmed by MARY AMATO, LUDA ([id number]), society editor ESTHER ANDERSON ([id number]) on 02/12/2023 9:51:57 AM Referred By: Confirmed By:LUDA HERNANDEZ MD
--- NOTE | 2023-02-01 09:08 | RAD_ITS ---
STUDY: X-RAY CHEST REASON FOR EXAM: Male, 67 years old. Dyspnea TECHNIQUE: Frontal view of the chest COMPARISON: 11/15/2019 FINDINGS: The lungs are clear. There are no pleural effusions. There is no pneumothorax. The heart is normal in size. The visualized osseous structures are within normal limits. RAD/Chest 1 View (Portable) IMPRESSION: No acute thoracic pathology. Electronically Signed: Yury Noble MD at 10:21 EST ,
--- NOTE | 2023-02-01 09:14 | ED.VIS.DYS ---
HPI History of Present Illness Chief Complaint: Shortness of Breath Informant: patient and family Narrative Narrative: [id number] male presenting to the emergency room with dyspnea. Patient states that 3 weeks ago he was diagnosed with COVID-19. He states he has had a prior persistent cough with sputum production and dyspnea since. He saw his primary care doctor about 2 weeks ago was given a Z-Ilya and 5 days of prednisone. States he was also post to have a COVID and influenza swab which were not performed to see if he had resolved. He denies any fevers. He notes dyspnea on exertion. Denies vomiting or diarrhea. He denies chest pain. No leg swelling weight gain or weight loss. He is a long-term smoker. He reports that he has not been able to have a cigarette since Friday. Patient notes that he is much of an appetite. He states that it is taking him about 2-2 and half hours to eat a microwavable portion of spaghetti. [facility] Medical History Anxiety Chronic pain syndrome DDD (degenerative disc disease) Essential (primary) hypertension Kyphosis Lower extremity edema Nicotine dependence Osteoarthritis PTSD (post-traumatic stress disorder) Vitamin B 12 deficiency Yopgw-Oqjsojwam-Samsb syndrome Home Medications alprazolam 0.5 mg tablet 0.5 mg PO TID 03/03/13 [History Last Taken 01/31/23] trazodone 50 mg tablet 50 mg PO QHS 03/03/13 [History Last Taken 01/31/23] amlodipine 5 mg tablet 5 mg PO DAILY 90 days #90 tabs 04/28/18 [History Last Taken 01/31/23] atenolol 50 mg tablet 50 mg PO DAILY 90 days #90 tabs 04/28/18 [History Last Taken 01/31/23] celecoxib 200 mg capsule 200 mg PO DAILY 30 days #30 caps 04/28/18 [History Last Taken 01/31/23] cyclosporine 0.05 % eye drops in a dropperette (Restasis) 1 drp ophthalmic (eye) Q12H 04/28/18 [History Last Taken 01/31/23] gabapentin 600 mg tablet 1,200 mg PO TID 30 days #180 tabs 04/28/18 [History Last Taken 01/31/23] lisinopril 20 mg-hydrochlorothiazide 12.5 mg tablet 1 tab PO DAILY 45 days #45 tabs 04/28/18 [History Last Taken 01/31/23] meclizine 25 mg tablet 25 mg PO PRN PRN Muscle Spasm 30 days #90 tabs 04/28/18 [History Last Taken 01/31/23] morphine 15 mg tablet,extended release 15 mg PO TID 30 days #90 tabs 04/28/18 [History Last Taken 02/01/23] oxycodone-acetaminophen 7.5 mg-325 mg tablet 1 tab PO Q6H PRN PRN Pain 06/26/18 [History Last Taken 02/01/23] albuterol sulfate 90 mcg/actuation aerosol inhaler 1 puff inhalation Q6H 02/01/23 [History Last Taken 02/01/23] cyclobenzaprine 10 mg tablet 10 mg PO Q8H 02/01/23 [History Last Taken 01/31/23] fluticasone propionate 230 mcg-salmeterol 21 mcg/actuation HFA inhaler (Advair HFA) 2 puff inhalation Q12H 02/01/23 [History Last Taken 02/01/23] Allergy/AdvReac Type Severity Reaction Status Date / Time butorphanol tartrate Allergy Anaphylaxis Verified 02/01/23 08:41 [From Stadol] phenobarbital Allergy Anaphylaxis Verified 02/01/23 08:41 fentanyl AdvReac Intermediate Other Verified 02/01/23 08:41 Family History Mother Heart disease Hypertension Father Cancer lung cancer Surgical History History of carpal tunnel release Social History Smoking Status: Current every day smoker tobacco type: cigarettes Tobacco: How many years used: 40 caffeine: Yes (4 + drinks daily) ROS ROS ED Constitutional Constitutional ED: Denies chills, fever(s) or weight loss Eyes Eyes: Denies change in vision or diplopia ENT ENT ED: Denies ear pain, rhinorrhea or sore throat Cardiovascular Cardiovascular: Denies chest pain, orthopnea, palpitations, paroxysmal nocturnal dyspnea or racing heartbeat Respiratory/Chest Respiratory/Chest: Reports cough, dyspnea, dyspnea on exertion and sputum; Denies orthopnea or paroxysmal nocturnal dyspnea Gastrointestinal Gastrointestinal: Denies abdominal pain, diarrhea, nausea or vomiting Genitourinary Genitourinary ED: Denies dysuria, hematuria or urinary frequency Musculoskeletal Musculoskeletal: Denies arthralgias or myalgias Integumentary Denies abscess or rash Neurologic Neurologic: Denies headache(s) or weakness Psychiatric Psychiatric: Denies anxiety, depression, suicidal ideation or suicidal thoughts Endocrine Endocrinology: Denies polydipsia, polyphagia or polyuria Allergic/Immunologic Allergic/Immunologic ED: Denies mouth swelling, tongue swelling or urticaria EXAM Physical Exam Const Vital Signs: 02/01/23 08:41 02/01/23 08:52 02/01/23 09:00 Temperature 97.0 F L Temperature Source Temporal Pulse Rate 98 97 97 Respiratory Rate 24 H 22 H 26 H Respiratory Effort Respiratory Depth Respiratory Pattern Blood Pressure 138/80 H 136/100 H Blood Pressure Mean 99 112 Pulse Ox 98 92 99 Oxygen Delivery Method Room Air Room Air Room Air Oxygen Flow Rate (L/min) 02/01/23 11:34 02/01/23 11:44 02/01/23 12:00 Temperature Temperature Source Pulse Rate 92 93 Respiratory Rate 20 H 19 H Respiratory Effort Normal Non-Labored Respiratory Depth Normal Respiratory Pattern Normal Blood Pressure 132/96 H 136/97 H Blood Pressure Mean 108 110 Pulse Ox 98 99 Oxygen Delivery Method Room Air Room Air Room Air Oxygen Flow Rate (L/min) 02/01/23 13:00 02/01/23 14:17 02/01/23 14:19 Temperature Temperature Source Pulse Rate 96 Respiratory Rate 22 H Respiratory Effort Respiratory Depth Respiratory Pattern Blood Pressure 142/108 H Blood Pressure Mean 119 Pulse Ox 100 75 96 Oxygen Delivery Method Room Air Room Air Nasal Cannula Oxygen Flow Rate (L/min) 1 02/01/23 14:19 02/01/23 14:30 02/01/23 15:18 Temperature Temperature Source Pulse Rate 94 98 Respiratory Rate 24 H 17 Respiratory Effort Respiratory Depth Respiratory Pattern Blood Pressure 138/109 H 121/92 H Blood Pressure Mean 118 101 Pulse Ox 92 96 Oxygen Delivery Method Nasal Cannula Nasal Cannula Oxygen Flow Rate (L/min) 1 1 02/01/23 15:55 02/01/23 16:43 02/01/23 16:43 Temperature Temperature Source Pulse Rate 94 97 97 Respiratory Rate 29 H 24 H 24 H Respiratory Effort Respiratory Depth Respiratory Pattern Blood Pressure 121/92 H 136/100 H 136/100 H Blood Pressure Mean 101 112 112 Pulse Ox 94 93 93 Oxygen Delivery Method Room Air Room Air Oxygen Flow Rate (L/min) Positive well nourished and well developed General Appearance ED: well developed HEENT Reports normocephalic, head/scalp atraumatic and moist mucous membranes Eyes PERRL and EOMs intact bilaterally Neck no lymphadenopathy, supple and no JVD Resp clear to auscultation bilaterally Resp Narrative: Slightly diminished at the left lung base. Patient has conversational dyspnea. Cardio regular rate, regular rhythm and no murmurs GI normal to inspection, nondistended, normoactive bowel sounds and non-tender Palpation: soft Back/Spine no CVA tenderness and normal ROM Extremity normal to inspection General Extremety ED: Negative for edema General Extremity: Negative for edema Neuro oriented x3 and CN's II-XII intact bilaterally Sensorium / Orientation: alert Motor Exam: strength 5/5 throughout Psych mental status grossly normal Mood & Affect: Negative for depressed or tearful Skin no rashes or lesions noted and no wounds MDM MDM MDM Narrative Medical decision making narrative: IV was established. The patient needed some gabapentin which he had not yet taken this morning. Later he received his morphine and Percocet. White count returns at 8.8 with hemoglobin of 9.5 and a platelet count of 171. D-dimer is normal 0.27. Troponin elevated 626 and a beta natruretic peptide at 2326. Total bilirubin returns at 1.6 with AST of 3567 and an ALT of 2294. Delta troponin is still elevated at 572 trending down. Lipase is normal at 14. My independent interpretation of the chest x-ray is no acute cardiopulmonary findings. Patient lung sounds are clear but he is dyspneic and hypoxic with exertion. CTA of the chest demonstrated no intrathoracic pathology that I feel would truly explain his symptoms. There was some chronic changes noted and a small pleural effusion. CT of the pelvis demonstrates pericholecystic fluid and a thick gallbladder wall. Therefore gallbladder ultrasound was obtained which again shows a pericholecystic fluid and thick-walled gallbladder but no evidence of stones in the common bile duct is 3 mm. I went ahead and covered him with Zosyn and he received a dose of aspirin I spoke with surgery who does not feel that the patient would require any emergent cholecystectomy that if anything he may require a biliary tube but feels that there could be a hepatitis confounding this picture. I do wonder could he have a viral cardiomyopathy and that his dyspnea is cardiac in nature. Think the patient needs to be admitted needs to have an echocardiogram needs to have further investigation into the liver and cardiac findings. I Spoke with the patient and after speaking with consultants internal medicine and gastroenterology the patient would like to be transferred to [facility]. I did speak with them the patient has been accepted in transfer. History & Record Review Discussion w/independent historian: EMS personnel, Patient and Family Additional record(s) reviewed:: Prior inpatient record, Prior outpatient record, Prior ED visit and Prior labs Lab Data Attestation: I reviewed the patient's lab results. Labs: Laboratory Results - last 24 hr 02/01/23 02/01/23 02/01/23 09:48 11:29 14:10 WBC 8.8 RBC 3.45 L Hgb 9.5 L Hct 30.7 L MCV 89.0 MCH 27.5 MCHC 30.9 L RDW Std Deviation 54.3 H RDW Coeff of Nerissa 16.7 H Plt Count 171 MPV 11.7 Immature Gran % (Auto) 0.800 Neut % (Auto) 79.0 H Lymph % (Auto) 12.4 L Mcdowell % (Auto) 7.4 Eos % (Auto) 0.1 Baso % (Auto) 0.3 Absolute Neuts (auto) 7.0 Absolute Lymphs (auto) 1.09 Nucleated RBC % 0 D-Dimer Quant (PE/DVT) < 0.27 L Sodium 130 L Potassium 5.0 Chloride 103 Carbon Dioxide 17.0 L Anion Gap 10 BUN 26 H Creatinine 1.39 H Est GFR (MDRD) Af Amer 66 Est GFR (MDRD) Non-Af 54 L BUN/Creatinine Ratio 18.7 Glucose 95 Calcium 8.9 Total Bilirubin 1.60 H AST 3567 H ALT 2294 H Alkaline Phosphatase 132 H Troponin I High Sens 626 H* 572 H* B-Natriuretic Peptide 2326.6 H Total Protein 7.7 Albumin 3.0 L Globulin 4.7 H Albumin/Globulin Ratio 0.6 L Lipase 14 Radiography Diagnostic Testing: Clinical Impression(s) from Imaging Studies Chest X-Ray 02/01/23 09:08 IMPRESSION: No acute thoracic pathology. Electronically Signed: Yury Noble MD at 10:21 EST , Chest/Abdomen/Pelvis CTA 02/01/23 10:52 IMPRESSION: No pulmonary embolus. No aortic aneurysm or dissection. Atherosclerosis and coronary artery disease. Moderate emphysema with biapical scarring. Small right pleural effusion and trace left pleural effusion. No pulmonary infiltrates. Thick-walled gallbladder with adjacent free fluid and stranding. This is suspicious for acute cholecystitis and further evaluation with ultrasound is recommended. No bowel obstruction or inflammation. Normal kidneys. No hydronephrosis. Electronically Signed: Yury Noble MD at 12:02 EST , Gallbladder Ultrasound 02/01/23 12:29 IMPRESSION: Significantly thickened gallbladder wall with pericholecystic fluid. No gallstones identified. This may represent a calculus cholecystitis and clinical correlation is recommended. If indicated, further evaluation with a nuclear medicine hepatobiliary study can be performed. Heterogeneous liver, consistent with hepatocellular disease. Electronically Signed: Yury Noble MD at 13:54 EST , EKG Initial EKG: Attestation: I personally reviewed and interpreted this EKG as follows: Comments: Normal sinus rhythm with a ventricular rate of 94 bpm. Left ventricular hypertrophy noted. No definitive features of ACS seen. Follow-up EKG: Attestation: I personally reviewed and interpreted this EKG as follows: Comments: Sinus rhythm with occasional PVCs and a ventricular rate of 93 bpm. Differential Diagnosis Chest pain/SOB: pulmonary embolism, ACS, pneumothorax, pneumonia, aortic dissection, CHF and COPD Abdominal Pain: Cholecystitis, Pancreatitis and Bowel obstruction Management Discussion w/another healthcare provider: [employer] (Surgery (Dr. Real) gastroenterology (Dr. Calzada) internal medicine/hospitalist (Dr. Rodriguez)) Discharge Plan Triage Chief Complaint: Shortness of Breath ED Provider: Clay Amaral Dx/Rx/DC Orders Clinical Impression: Abdominal pain, acute, Acute dyspnea, Elevated liver enzymes, Elevated troponin, Cardiomyopathy Prescriptions: No Action gabapentin 600 mg tablet 1,200 mg PO TID 30 Days Qty: 180 morphine 15 mg tablet extended release 15 mg PO TID 30 Days Qty: 90 Patient Comments: take 1 tablet by mouth every 8 hours celecoxib 200 mg capsule 200 mg PO DAILY 30 Days Qty: 30 lisinopril-hydrochlorothiazide 20-12.5 mg tablet 1 tab PO DAILY 45 Days Qty: 45 Patient Comments: take 2 tablets by mouth once daily amlodipine 5 mg tablet 5 mg PO DAILY 90 Days Qty: 90 meclizine 25 mg tablet 25 mg PO PRN PRN (Reason: Muscle Spasm) 30 Days Qty: 90 Patient Comments: take 1 tablet by mouth three times a day if needed atenolol 50 mg tablet 50 mg PO DAILY 90 Days Qty: 90 Patient Comments: take 1 tablet by mouth once daily Restasis 0.05 % dropperette 1 drp OPHTHALMIC Q12H trazodone 50 MG tablet 50 mg PO QHS alprazolam 0.5 MG tablet 0.5 mg PO TID oxycodone-acetaminophen 1 EACH tablet 1 tab PO Q6H PRN PRN (Reason: Pain) Patient Comments: take 1 tablet by mouth four times a day if needed albuterol sulfate 90 mcg/actuation HFA aerosol inhaler 1 puff INHALATION Q6H cyclobenzaprine 10 mg tablet 10 mg PO Q8H fluticasone propion-salmeterol [Advair HFA] 230-21 mcg/actuation HFA aerosol inhaler 2 puff INHALATION Q12H Primary Care Provider: Joaquin Stanford Referrals: Joaquin Stanford [[facility]] - Disposition Disposition: Acute Care Hospital Discharge Location: [facility]
--- NOTE | 2023-02-01 09:25 | ED.RN ---
iv obtained with u/s unable to get bloodwork. lab called
[2023-02-01 10:00] LABS: Absolute Lymphocyte Count 1.09 X10^3/uL (0.83-4.51); Basophil# 0.03 X10^3/uL; Basophil% 0.3 % (0-1); Eosinophil# 0.01 X10^3/uL; Eosinophils% 0.1 % (0-5); Hematocrit 30.7 % (40-54); Hemoglobin 9.5 g/dL (13.0-16.5); Lymphocyte # 1.09 X10^3/ul (0.83-4.51); Lymphocyte % 12.4 % (19-41); Mean Corp Hgb Conc 30.9 g/dL (32-36); Mean Corpuscular Hgb 27.5 pg (27.0-32.0); Mean Platelet Vol. 11.7 fl (6.2-12.0); Monocyte# 0.65 X10^3/uL; Monocyte% 7.4 % (0-10); NRBC Flagged by Analyzer 0 % (0-5); Neutrophil # 6.97 X10^3/uL (2.7-7.7); Platelet Count 171 K/mm3 (150-450); RBC Distribution Width CV 16.7 % (11.6-14.6); RBC Distribution Width SD 54.3 fl (35.1-43.9); Red Blood Count 3.45 M/mm3 (4.6-6.2); White Blood Count 8.8 K/mm3 (4.4-11.0)
--- NOTE | 2023-02-01 10:14 | ED.RN ---
pt requesting pain meds. took morphine and percocet at home. ordered pt home Neurontin
[2023-02-01 10:18] LABS: D-Dimer Quantitative (DVT/PE) < 0.27 FEU/ug/m (0.27-0.49)
[2023-02-01 10:41] LABS: BNP,B-Type NATRIURETIC PEPTIDE 2326.6 pg/mL (0-100)
[2023-02-01 10:45] LABS: ALB/GLOB Ratio 0.6 RATIO (0.9-2.4); AST(SGOT) 3567 U/L (15-37); Alanine Aminotransfer ALT/SGPT 2294 U/L (16-61); Alkaline Phosphatase 132 U/L (45-117); Anion Gap 10 (5-15); BUN 26 mg/dL (7-18); BUN/Creat Ratio 18.7 RATIO (10-20); Calcium,Total 8.9 mg/dL (8.5-10.1); Chloride 103 mmol/L (98-107); Creatinine, Serum 1.39 mg/dL (0.70-1.30); EST Glomerular Filtration Rate 54 mL/min (>60); Est Glom Filt Rate - Afr Amer 66 mL/min (>60); Globulin 4.7 g/dL (2.2-4.2); Glucose 95 mg/dL (74-106); Protein, Total 7.7 g/dL (6.4-8.2); Sodium Level 130 mmol/L (136-145); Troponin-I HS 626 pg/mL (3.0-78.0)
--- NOTE | 2023-02-01 10:52 | CT_ITS ---
STUDY: CTA CHEST, ABDOMEN AND PELVIS WITH CONTRAST REASON FOR EXAM: Male, 67 years old. Aortic dissection RADIATION DOSAGE (If Supplied By Facility): CTDIvol = ( 10.76 ) mGy, DLP = ( 512.31 ) mGycm TECHNIQUE: The examination was performed with the intravenous administration of IV 100mL Isovue-370. Post-processing of the angiographic images was performed, with multiplanar reformation and 3D reconstruction. Individualized dose optimization techniques were used for this CT. COMPARISON: No relevant prior comparison study available FINDINGS: LUNGS: There is moderate emphysema with biapical scarring. There are no pulmonary infiltrates. There are no pulmonary nodules or masses. PLEURAL SPACE: There is a small right pleural effusion and trace left pleural effusion. There is no pneumothorax. MEDIASTINUM: The heart and pericardium are within normal limits. There are coronary artery calcifications. There is no pneumomediastinum. There is no thoracic lymphadenopathy. THORACIC VESSELS: There is no pulmonary embolus. The pulmonary artery is normal in caliber. There is no thoracic aortic aneurysm or dissection. The great vessels are patent and normal in caliber. GALLBLADDER / BILE DUCTS: The gallbladder is thick-walled and there is adjacent stranding and free fluid. There are no calcified gallstones present. There is no intrahepatic biliary duct dilatation. The common bile duct is normal in caliber. There are no calcified ductal stones. LIVER: The liver is within normal limits. There are no suspicious hepatic lesions. SPLEEN: The spleen is normal in size. PANCREAS: The pancreas is within normal limits. ADRENAL GLANDS: The adrenal glands are within normal limits. KIDNEYS / BLADDER: There are no renal or ureteral stones. There is no hydronephrosis. There are no focal renal lesions. The urinary bladder is partially distended and appears grossly unremarkable. STOMACH / BOWEL: There are surgical clips in the stomach. There is no bowel obstruction or inflammation. The appendix is not visualized, but there are no findings to suggest acute appendicitis. PERITONEUM/RETROPERITONEUM: There is a small amount of free fluid. There is no free air or fluid collection. There is no abnormal soft tissue mass identified. There is no abdominal or pelvic lymphadenopathy. VESSELS: There are atherosclerotic calcifications noted in the abdominal aorta and its branches. There is no abdominal aortic aneurysm or dissection. The celiac artery, superior mesenteric artery, bilateral renal arteries and inferior mesenteric artery are patent and normal in caliber. The bilateral common iliac arteries, internal iliac arteries, external iliac arteries and common femoral arteries are patent and normal in caliber. The IVC is unremarkable. BONES: There are no destructive osseous lesions. SOFT TISSUES: The visualized soft tissues are within normal limits. CT/CTA Chst, Abd, Pel W and/or WO IMPRESSION: No pulmonary embolus. No aortic aneurysm or dissection. Atherosclerosis and coronary artery disease. Moderate emphysema with biapical scarring. Small right pleural effusion and trace left pleural effusion. No pulmonary infiltrates. Thick-walled gallbladder with adjacent free fluid and stranding. This is suspicious for acute cholecystitis and further evaluation with ultrasound is recommended. No bowel obstruction or inflammation. Normal kidneys. No hydronephrosis. Electronically Signed: Yury Noble MD at 12:02 EST ,
[2023-02-01] MEDS: Gabapentin 600 MG Tablet 1200 MG PO (11:32)
[2023-02-01 12:23] LABS: Lipase 14 U/L (13-75)
--- NOTE | 2023-02-01 12:29 | US_ITS ---
STUDY: ABDOMINAL ULTRASOUND - RIGHT UPPER QUADRANT REASON FOR VISIT: Male, 67 years old. Pain. TECHNIQUE: Ultrasound evaluation of the right upper quadrant was performed with real-time and static galindo-scale imaging. TECHNICAL QUALITY: Good by bowel gas. COMPARISON: CT 02/01/2023 FINDINGS: Liver: The liver measures 14.5 cm. There is a heterogeneous echogenicity of the liver. The bile ducts are within normal limits. There is hepatic color flow. The direction of portal flow is hepatopetal. There is no demonstrated mass lesion. Gallbladder: Normal distended gallbladder. The gallbladder wall measures 12 mm. There is a negative sonographic Ordoñez''s sign. There is pericholecystic fluid. There are no gallstones. Common Bile Duct (C.B.D.): The common bile duct measures 3 mm. Pancreas: Pancreas is not well visualized due to bowel gas. Right Kidney: Normal size of the right kidney. The right kidney measures 9.8 cm. Normal renal cortex. There is no demonstrated renal mass or cyst. There is no right hydronephrosis. US/Gallbladder IMPRESSION: Significantly thickened gallbladder wall with pericholecystic fluid. No gallstones identified. This may represent a calculus cholecystitis and clinical correlation is recommended. If indicated, further evaluation with a nuclear medicine hepatobiliary study can be performed. Heterogeneous liver, consistent with hepatocellular disease. Electronically Signed: Yury Noble MD at 13:54 EST ,
[2023-02-01] MEDS: Piperacil/Tazobactam 4.5 GM in 0.9% Normal Saline (100mL MB+) 100 ML IV (14:42)
[2023-02-01 15:15] LABS: Troponin-I HS 572 pg/mL (3.0-78.0)
--- NOTE | 2023-02-01 15:17 | ED.RN ---
PT STATES WE BECOMES VERY SOB WITH INTENSE PAIN WHEN HE BARES DOWN TO URINATE.
[2023-02-01] MEDS: Oxycodone/Apap 5/325 Tablet PO (17:04)
[2023-02-01] MEDS: morphine SR 15 MG Tablet PO (17:26)
== END 2023-02-01 20:26 | disposition short-term general hospital (02) ==
PROVIDERS: Emergency Provider Emergency Medicine; PCP Family Medicine; Visit Provider Emergency Medicine
DX: R10.9 Unspecified abdominal pain (principal); I42.9 Cardiomyopathy, unspecified; R06.00 Dyspnea, unspecified; R74.8 Abnormal levels of other serum enzymes; R77.8 Other specified abnormalities of plasma proteins; I10 Essential (primary) hypertension; F17.210 Nicotine dependence, cigarettes, uncomplicated; Z79.899 Other long term (current) drug therapy; Z86.16 Personal history of COVID-19
CPT/HCPCS: 36415; 71045; 71275; 74174; 76705; 80053; 83690; 83880; 84484; 85025; 85379; 87040; 93005; 96365; 96366; 99285; Q9967; A4216

== ENCOUNTER 2023-12-05 18:03 | Emergency (ER) | payer MEDICARE, SELFPAY ==
[2023-12-05 18:06] VITALS: BP 127/85; PULSE 109; RESP 18; TEMP 36.1; O2SAT 98; BMI 21.1
--- NOTE | 2023-12-05 19:05 | EKG12_ITS ---
Test Reason : PALPS Blood Pressure : / mmHG Vent. Rate : 100 BPM Atrial Rate : 100 BPM P-R Int : 178 ms QRS Dur : 134 ms QT Int : 388 ms P-R-T Axes : 076 067 268 degrees QTc Int : 500 ms Normal sinus rhythm Left ventricular hypertrophy with QRS widening and repolarization abnormality ( Tanvir product , Rom hilt-Nguyen ) Abnormal ECG Confirmed by Kenneth Vail ([id number]), technical editor UZIEL BA ([id number]) on 12/08/2023 11:19:42 AM Referred By: REJI Confirmed By:Kenneth Vail
--- NOTE | 2023-12-05 19:08 | EDS_ITS ---
HPI History of Present Illness Chief Complaint: Palpitations Informant: patient and other (cardiology) Narrative Narrative: 68-year-old male who is wearing a Holter monitor because of near syncopal episodes and random brief episodes of right sided sharp chest pain, sometimes they occur together other times not, that been going on for months. He has been wearing a Holter monitor and today was the first time the company called him about abnormal results. This was sent to the local cardiology office, with which he is not established, and they are reporting that the patient is having long sinus pauses. Patient had a CABG at [facility] February of last year. He comes with a list of his medications, he does not know them but they include metoprolol succinate 25 mg once a day and amiodarone 200 mg once a day according to his 03/2023 med list. When he is not feeling lightheaded or having episodes of chest pain, he is asymptomatic as he is right now. However, when reviewing the patient's pill bottles on what he is actually taking, he states he has been off of amiodarone for some time, and he appears to be taking both atenolol and metoprolol. He is on atenolol 50 mg once daily and metoprolol succinate 12.5 mg twice daily. [facility] Medical History Systolic congestive heart failure FH: mitral valve repair A-fib Kyphosis Skpno-Cqvppldax-Xliqz syndrome Chronic pain syndrome Lower extremity edema Nicotine dependence Vitamin B 12 deficiency DDD (degenerative disc disease) Osteoarthritis Anxiety PTSD (post-traumatic stress disorder) Essential (primary) hypertension Home Medications ?Medication ?Instructions ?Recorded ?Last Taken ?Type alprazolam 0.5 mg tablet 0.5 mg PO TID 03/03/13 12/04/23 History trazodone 50 mg tablet 50 mg PO QHS 03/03/13 12/04/23 History celecoxib 200 mg capsule 200 mg PO BID 30 days #30 caps 04/28/18 12/04/23 History cyclosporine 0.05 % eye drops in a 1 drp ophthalmic (eye) Q12H PRN 04/28/18 01/31/23 History dropperette (Restasis) dry eye gabapentin 600 mg tablet 600 mg PO TID 30 days #180 tabs 04/28/18 12/05/23 History morphine 15 mg tablet,extended 15 mg PO TID 30 days #90 tabs 04/28/18 12/05/23 History release oxycodone-acetaminophen 7.5 mg-325 1 tab PO 4X/DAY PRN Pain 06/26/18 12/05/23 History mg tablet albuterol sulfate 90 mcg/actuation 1 puff inhalation Q6H 02/01/23 02/01/23 History aerosol inhaler cyclobenzaprine 10 mg tablet 10 mg PO TID PRN muscle spasm 02/01/23 01/31/23 History apixaban 5 mg tablet (Eliquis) 5 mg PO BID 12/05/23 12/04/23 History aspirin 81 mg tablet,delayed 81 mg PO DAILY 12/05/23 12/04/23 History release (Adult Low Dose Aspirin) atorvastatin 80 mg tablet 80 mg PO QHS 12/05/23 12/04/23 History lisinopril 2.5 mg tablet 2.5 mg PO DAILY 12/05/23 12/04/23 History nicotine 21 mg/24 hr daily 1 patch transdermal DAILY 12/05/23 12/05/23 History transdermal patch (Nicoderm CQ) tizanidine 2 mg tablet 2 mg PO TID 12/05/23 12/05/23 History torsemide 20 mg tablet 20 mg PO DAILY 12/05/23 12/04/23 History Allergy/AdvReac Type Severity Reaction Status Date / Time butorphanol tartrate (From Allergy Anaphylaxis Verified 12/05/23 18:06 Stadol) phenobarbital Allergy Anaphylaxis Verified 12/05/23 18:06 fentanyl AdvReac Intermediate Other Verified 12/05/23 18:06 Family History Mother Heart disease Hypertension Father Cancer lung cancer Surgical History Hx of CABG History of carpal tunnel release Social History Smoking Status: Current every day smoker tobacco type: cigarettes Tobacco: How many years used: 40 caffeine: Yes (4 + drinks daily) ROS ROS ED Constitutional Constitutional ED: Denies chills or fever(s) Eyes Eyes: Denies change in vision or diplopia ENT ENT ED: Denies rhinorrhea or sore throat Cardiovascular Cardiovascular: Reports as per HPI, chest pain and lightheadedness; Denies palpitations or syncope Respiratory/Chest Respiratory/Chest: Denies cough or dyspnea Gastrointestinal Gastrointestinal: Denies abdominal pain, diarrhea, nausea or vomiting Genitourinary Genitourinary ED: Denies dysuria or hematuria Musculoskeletal Musculoskeletal: Denies back pain or neck pain Integumentary Denies abscess or rash Neurologic Neurologic: Denies headache(s), paresthesias or weakness Psychiatric Psychiatric: Denies anxiety or suicidal thoughts EXAM Physical Exam Const Vital Signs: 12/05/23 18:06 12/05/23 19:00 12/05/23 20:05 Temperature 97 F L Temperature Source Temporal Pulse Rate 109 H 81 Respiratory Rate 18 18 Respiratory Effort Normal Non-Labored Blood Pressure 127/85 H 133/91 H Blood Pressure Mean 99 105 Pulse Ox 98 92 Oxygen Delivery Method Room Air Room Air Positive well nourished and well developed General Appearance ED: well developed and NAD HEENT Reports moist mucous membranes normocephalic and atraumatic Eyes PERRL and EOMs intact bilaterally Neck full ROM and supple Resp normal respiratory effort and clear to auscultation bilaterally Cardio regular rate, regular rhythm and no murmurs GI non-tender and non-distended Auscultation: normoactive bowel sounds Palpation: soft Back/Spine no CVA tenderness General Back: other FROM Extremity normal to inspection General Extremety ED: Negative for edema, pulses abnormal or tenderness General Extremity: Negative for edema or pulses abnormal Neuro oriented x3, CN's II-XII intact bilaterally and no sensory deficits noted Sensorium / Orientation: awake and alert Motor Exam: strength 5/5 throughout Skin no rashes or lesions noted and no wounds MDM MDM MDM Narrative Medical decision making narrative: I reviewed the patient's [employer] device report showing episodes of bradycardia/sinus pauses. He is not having that at the moment, he has what appears to be a left bundle branch block without acute injury pattern. His vital signs are normal and he is feeling well with a normal exam. He still wearing his device. I discussed with Dr. Vail, as these 2 medications metoprolol and atenolol are is only 2 AV kristopher blockers. Given that the patient has been having symptoms for months and has never lost consciousness, he agrees with getting basic labs and asked that we also add a baseline beta natruretic peptide, and advised that he discontinue both of those 2 medications, leave the device on continuing to record episodes, and report to the office 3 days from now on Friday about any recurrent symptoms over the weekend, and to make an appointment as an outpatient for next week. I am having nurses do medication reconciliation so that what is in the EMR is accurate based on what he is taking his pill bottles. We ambulated him. His pulse went from the 60s up to the 80s and he was asymptomatic. Stable for discharge home. History & Record Review Discussion w/independent historian: Patient and Family Additional record(s) reviewed:: Prior outpatient record Lab Data Attestation: I reviewed the patient's lab results. Labs: Laboratory Results - last 24 hr 12/05/23 19:07 WBC 5.3 RBC 3.61 L Hgb 10.6 L Hct 33.5 L MCV 92.8 MCH 29.4 MCHC 31.6 L RDW Std Deviation 50.6 H RDW Coeff of Nerissa 14.8 H Plt Count 202 MPV 10.8 Immature Gran % (Auto) 0.200 Neut % (Auto) 47.2 Lymph % (Auto) 41.4 H [place] % (Auto) 7.6 Eos % (Auto) 3.0 Baso % (Auto) 0.6 Absolute Neuts (auto) 2.5 Absolute Lymphs (auto) 2.18 Nucleated RBC % 0 Sodium 138 Potassium 4.3 Chloride 107 Carbon Dioxide 25.0 Anion Gap 6 BUN 20 H Creatinine 1.45 H Estim Creat Clear Calc 44.02 Est GFR (MDRD) Af Amer 62 Est GFR (MDRD) Non-Af 52 L BUN/Creatinine Ratio 13.8 Glucose 82 Calcium 9.0 Troponin I High Sens 10 B-Natriuretic Peptide 246.3 H Rhythm Strip Rhythm Strip: Sinus Rhythm Rate: 100 Ectopy: None EKG Initial EKG: Attestation: I personally reviewed and interpreted this EKG as follows: Interpretation: Sinus Rhythm, No Acute Injury Pattern and LBBB Prior EKG tracings: available for review Prior: Unchanged Management Discussion w/another healthcare provider: Membership Sales Representative (Cardiology Dr. Vail) Discharge Plan Triage Chief Complaint: Palpitations ED Provider: Joe Webster Dx/Rx/DC Orders Clinical Impression: Sinus pause, Near syncope, Intermittent right-sided chest pain Instructions: ED About Arrhythmias Prescriptions: Continued gabapentin 600 mg tablet 600 mg PO TID 30 Days Qty: 180 morphine 15 mg tablet extended release 15 mg PO TID 30 Days Qty: 90 celecoxib 200 mg capsule 200 mg PO BID 30 Days Qty: 30 cyclosporine [Restasis] 0.05 % dropperette 1 drp OPHTHALMIC Q12H PRN (Reason: dry eye) Patient Comments: pt states he gets this otc when needed. trazodone 50 MG tablet 50 mg PO QHS alprazolam 0.5 MG tablet 0.5 mg PO TID oxycodone-acetaminophen 1 EACH tablet 1 tab PO 4X/DAY PRN (Reason: Pain) albuterol sulfate 90 mcg/actuation HFA aerosol inhaler 1 puff INHALATION Q6H cyclobenzaprine 10 mg tablet 10 mg PO TID PRN (Reason: muscle spasm) Patient Comments: pt states he takes this, however pill bottle is from 03/08/2022 nicotine [Nicoderm CQ] 21 mg/24 hr patch 24 hour 1 patch transdermal DAILY atorvastatin 80 mg tablet 80 mg PO QHS lisinopril 2.5 mg tablet 2.5 mg PO DAILY Eliquis 5 mg tablet 5 mg PO BID aspirin [Adult Low Dose Aspirin] 81 mg tablet,delayed release (DR/EC) 81 mg PO DAILY tizanidine 2 mg tablet 2 mg PO TID torsemide 20 mg tablet 20 mg PO DAILY Discontinued atenolol 50 mg tablet 50 mg PO DAILY 90 Days Qty: 90 metoprolol succinate 25 mg tablet extended release 24 hr 12.5 mg PO BID Primary Care Provider: Joaquin Stanford Referrals: Kenneth Vail MD [Med Staff - Active Staff] - As soon as possible Joaquin Stanford MD [Primary Care Provider] - Activity Restrictions/Additional Instructions: Call the cardiology office on Friday both to make an appointment for this coming week as soon as possible, and to report if you had any symptoms or events over the weekend since discontinuing the 2 heart medicines. No driving until you are seen by cardiology in the office. Print Language: Cambodian Disposition Disposition: Home, Self Care
[2023-12-05 19:22] LABS: Absolute Lymphocyte Count 2.18 X10^3/uL (0.83-4.51); Absolute Neutrophil Count 2.5 X10^3/uL (2.0-7.7); Basophil# 0.03 X10^3/uL; Basophil% 0.6 % (0-1); Eosinophil# 0.16 X10^3/uL; Hematocrit 33.5 % (40-54); Hemoglobin 10.6 g/dL (13.0-16.5); Lymphocyte # 2.18 X10^3/ul (0.83-4.51); Lymphocyte % 41.4 % (19-41); Mean Corp Hgb Conc 31.6 g/dL (32-36); Mean Corpuscular Hgb 29.4 pg (27.0-32.0); Mean Corpuscular Volume 92.8 fL (80-94); Mean Platelet Vol. 10.8 fl (6.2-12.0); Monocyte% 7.6 % (0-10); NRBC Flagged by Analyzer 0 % (0-5); Neutrophil # 2.49 X10^3/uL (2.7-7.7); Neutrophil % 47.2 % (47-70); Platelet Count 202 K/mm3 (150-450); RBC Distribution Width CV 14.8 % (11.6-14.6); RBC Distribution Width SD 50.6 fl (35.1-43.9); Red Blood Count 3.61 M/mm3 (4.6-6.2); White Blood Count 5.3 K/mm3 (4.4-11.0)
[2023-12-05 19:41] LABS: Anion Gap 6 (5-15); BUN 20 mg/dL (7-18); BUN/Creat Ratio 13.8 RATIO (10-20); Chloride 107 mmol/L (98-107); Creatinine, Serum 1.45 mg/dL (0.70-1.30); EST Glomerular Filtration Rate 52 mL/min (>60); Est Glom Filt Rate - Afr Amer 62 mL/min (>60); Estimated Creatinine Clearance 44.02 ml/min; Glucose 82 mg/dL (74-106); Potassium 4.3 mmol/L (3.5-5.1); Sodium Level 138 mmol/L (136-145); Troponin-I HS 10 pg/mL (3.0-78.0)
[2023-12-05 20:05] VITALS: BP 133/91; PULSE 81; RESP 18; O2SAT 92
[2023-12-05 20:11] LABS: BNP,B-Type NATRIURETIC PEPTIDE 246.3 pg/mL (0-100)
[2023-12-05 21:37] VITALS: BP 141/95; PULSE 69; RESP 18; TEMP 36.1; O2SAT 95
== END 2023-12-05 21:51 | disposition home or self-care (01) ==
LOC: ED 19:26
PROVIDERS: Emergency Provider Emergency Medicine; PCP Family Medicine; Visit Provider Emergency Medicine
DX: R55 Syncope and collapse (principal); I11.0 Hypertensive heart disease with heart failure; I50.22 Chronic systolic (congestive) heart failure; R07.9 Chest pain, unspecified; F17.210 Nicotine dependence, cigarettes, uncomplicated; Z79.51 Long term (current) use of inhaled steroids; Z79.82 Long term (current) use of aspirin; Z79.899 Other long term (current) drug therapy; Z79.01 Long term (current) use of anticoagulants
CPT/HCPCS: 80048; 83880; 84484; 85025; 93005; 99283; A4216

== ENCOUNTER 2024-09-06 19:42 | Emergency (ER) | payer MEDICARE, SELFPAY ==
[2024-09-06] VITALS (9 sets, daily range): BP systolic 118–155; BP diastolic 79–107; PULSE 73–86; RESP 14–18; TEMP 36.5–36.9; O2SAT 95–100; BMI 21.4
--- NOTE | 2024-09-06 20:26 | EKG12_ITS ---
Test Reason : Blood Pressure : */* mmHG Vent. Rate : 83 BPM Atrial Rate : 83 BPM P-R Int : 162 ms QRS Dur : 132 ms QT Int : 410 ms P-R-T Axes : 80 67 65 degrees QTcB Int : 481 ms Sinus rhythm with sinus arrhythmia with frequent Premature ventricular complexes Possible Left atrial enlargement Left ventricular hypertrophy with QRS widening and repolarization abnormality ( Tanvir product ) Cannot rule out Septal infarct , age undetermined Abnormal ECG Confirmed by MARY AMATO, LUDA ([id number]), sports editor UZIEL BA ([id number]) on 09/07/2024 10:54:03 AM Referred By: Confirmed By: LUDA HERNANDEZ MD
--- NOTE | 2024-09-06 20:27 | ED.VIS.CHEST ---
HPI History of Present Illness Chief Complaint: Chest Pain Detail of Chief Complaint: Chest pain and shortness of breath Informant: patient Narrative Narrative: Patient presents with chest pain and shortness of breath. He states he initially started with shortness of breath about a week and a half ago. He at times feels like he cannot breathe and then gets anxious. He started having chest discomfort last night that he scribes as a dull pressure in the left chest. Denies nausea or vomiting or radiation to the arm or neck or jaw. He has history of coronary artery disease as well as CHF and history of COPD. Patient does not normally wear O2. He denies weight gain or water gain. He is on apixaban for history of A-fib. [facility] Medical History (Updated 09/06/24 @ 23:[address] Ileana Mckeon DO) Sinus pause Mitral valve disease Paroxysmal supraventricular tachycardia TIA (transient ischemic attack) NSTEMI (non-ST elevated myocardial infarction) Hyperlipidemia Systolic congestive heart failure FH: mitral valve repair A-fib Kyphosis Pgmyg-Fydykosnv-Oqmts syndrome Chronic pain syndrome Lower extremity edema Nicotine dependence Vitamin B 12 deficiency DDD (degenerative disc disease) Osteoarthritis Anxiety PTSD (post-traumatic stress disorder) Essential (primary) hypertension Home Medications ?Medication ?Instructions ?Recorded ?Last Taken ?Type cyclosporine 0.05 % eye drops in a 1 drp ophthalmic (eye) Q12H PRN 04/28/18 01/31/23 History dropperette (Restasis) dry eye morphine 15 mg tablet,extended 15 mg PO TID 30 days #90 tabs 04/28/18 12/05/23 History release albuterol sulfate 90 mcg/actuation 1 puff inhalation Q6H 02/01/23 02/01/23 History aerosol inhaler aspirin 81 mg tablet,delayed 81 mg PO DAILY 12/05/23 12/04/23 History release (Adult Low Dose Aspirin) atorvastatin 80 mg tablet 80 mg PO QHS 12/05/23 12/04/23 History nicotine 21 mg/24 hr daily 1 patch transdermal DAILY 12/05/23 12/05/23 History transdermal patch (Nicoderm CQ) tizanidine 2 mg tablet 2 mg PO TID 12/05/23 12/05/23 History atenolol 50 mg tablet 50 mg PO QDAY #30 tabs 12/15/23 Unknown Rx lisinopril 2.5 mg tablet 2.5 mg PO DAILY 01/14/24 Unknown History apixaban 5 mg tablet (Eliquis) 5 mg PO BID 06/25/24 Unknown History metoprolol succinate 25 mg 25 mg PO QDAY 06/25/24 Unknown History tablet,extended release 24 hr omeprazole 40 mg capsule,delayed 40 mg PO QDAY 06/25/24 Unknown History release spironolactone 25 mg tablet 25 mg PO QDAY 06/25/24 Unknown History torsemide 20 mg tablet 20 mg PO QAM 06/25/24 Unknown History cholecalciferol (vitamin D3) 25 25 mcg PO DAILY 09/06/24 Unknown History mcg (1,000 unit) capsule (Vitamin D3) fluticasone propionate 230 2 puff inhalation BID 09/06/24 Unknown History mcg-salmeterol 21 mcg/actuation HFA inhaler (Advair HFA) levofloxacin 750 mg tablet 750 mg PO DAILY #6 tabs 09/06/24 Unknown Rx oxycodone 15 mg tablet (Roxicodone) 15 mg PO Q6H 09/06/24 Unknown History prednisone 20 mg tablet 20 mg PO BID #10 tabs 09/06/24 Unknown Rx trazodone 50 mg tablet 100 mg PO QHS 09/06/24 Unknown History Allergy/AdvReac Type Severity Reaction Status Date / Time butorphanol tartrate (From Allergy Anaphylaxis Verified 09/06/24 19:44 Stadol) phenobarbital Allergy Anaphylaxis Verified 09/06/24 19:44 fentanyl AdvReac Intermediate Other Verified 09/06/24 19:44 Family History Mother Heart disease Hypertension Father Cancer lung cancer Surgical History History of partial gastrectomy History of mandibular surgery History of appendectomy Hx of CABG History of carpal tunnel release Social History Smoking Status: Current some day smoker tobacco type: cigarettes Tobacco: How many years used: 40 caffeine: Yes (4 + drinks daily) ROS ROS ED Review of Systems ROS Unobtainable: other Constitutional Constitutional ED: Reports lethargy; Denies chills, fever(s), sweats or weight loss Eyes Eyes: Denies blurry vision, change in vision or diplopia ENT ENT ED: Denies rhinorrhea or sore throat Cardiovascular Cardiovascular: Reports chest pain; Denies orthopnea or racing heartbeat Respiratory/Chest Respiratory/Chest: Reports dyspnea and dyspnea on exertion; Denies cough, orthopnea or sputum Gastrointestinal Gastrointestinal: Denies abdominal pain, diarrhea, nausea or vomiting Genitourinary Genitourinary ED: Denies dysuria, hematuria or urinary frequency Musculoskeletal Musculoskeletal: Denies arthralgias, back pain, myalgias or neck pain Integumentary Denies abscess, Abrasions or rash Neurologic Neurologic: Denies headache(s) or weakness Psychiatric Psychiatric: Denies anxiety, depression or suicidal thoughts Endocrine Endocrinology: Denies polydipsia, polyphagia or polyuria Hematologic/Lymphatic Hematologic/Lymphatic: Denies easy bleeding, easy bruising or lymphadenopathy Allergic/Immunologic Allergic/Immunologic ED: Denies mouth swelling, tongue swelling or urticaria EXAM Physical Exam Const Vital Signs: 09/06/24 19:43 09/06/24 20:05 09/06/24 20:40 Temperature 97.7 F L Temperature Source Oral Pulse Rate 86 80 Respiratory Rate 18 15 Respiratory Effort Normal Non-Labored Respiratory Pattern Normal Blood Pressure 137/107 H Blood Pressure Mean 117 Pulse Ox 99 Oxygen Delivery Method Room Air 09/06/24 20:42 09/06/24 20:45 09/06/24 21:00 Temperature Temperature Source Pulse Rate 74 77 Respiratory Rate 16 16 Respiratory Effort Respiratory Pattern Blood Pressure 133/79 H 141/84 H Blood Pressure Mean 97 103 Pulse Ox 95 98 99 Oxygen Delivery Method Room Air Room Air Room Air 09/06/24 22:00 09/06/24 23:00 09/06/24 23:13 Temperature Temperature Source Pulse Rate 73 74 73 Respiratory Rate 16 18 14 Respiratory Effort Respiratory Pattern Blood Pressure 122/87 H 118/96 H Blood Pressure Mean 98 103 Pulse Ox 100 99 Oxygen Delivery Method Room Air Room Air Positive well nourished and well developed General Appearance ED: well developed and NAD HEENT Reports TM's clear and moist mucous membranes normocephalic and atraumatic; Negative for trauma or tenderness Tympanic Membrane ED: Yes TM's clear Eyes PERRL and EOMs intact bilaterally General Eye ED: Negative for pale conjunctiva or scleral icterus Neck no lymphadenopathy, supple and no JVD General: Negative for tenderness Chest Wall inspection of chest normal and palpation of chest normal Chest: Negative for tenderness Resp normal respiratory effort and No clear to auscultation bilaterally Resp Narrative: Somewhat diminished breath sounds bilaterally with faint expiratory wheezes. No significant tachypnea. No accessory muscle use or retractions Effort and Inspection: Negative for respiratory distress or pain with movement Auscultation: Negative for rhonchi, wheezes or diminished lung sounds Cardio regular rate, regular rhythm, S1 normal heart sound, S2 normal heart sound and no murmurs Peripheral Pulses: pulses 2+ throughout GI normal to inspection, nondistended, normoactive bowel sounds, soft to palpation, non-tender, non-distended and no masses Back/Spine no CVA tenderness and no thoracic nor lumbar tenderness Extremity normal to inspection General Extremety ED: Negative for edema General Extremity: Negative for edema Neuro oriented x3, CN's II-XII intact bilaterally, no sensory deficits noted and gait normal Sensorium / Orientation: awake, alert, oriented to person, oriented to place and oriented to time Motor Exam: strength 5/5 throughout and strength abnormal Psych mental status grossly normal Skin no rashes or lesions noted and no wounds Heart Score History: Moderately Suspicious ECG: Nonspecific Repolarization Age: >/= 65 years Risk Factors: >/= 3 Risk Factors or History of CAD Troponin: >1 - <3 Normal Limit Score: 7 MDM MDM MDM Narrative Medical decision making narrative: Patient presents with about a week and a half worth of increasing shortness of breath at times with developed some. History of three-vessel CABG 1 year ago. Patient on Eliquis. History of COPD. In the differential would be acute coronary syndrome versus COPD exacerbation or pneumonia. Low probability for PE given that he is on Eliquis and compliant with his meds. CHF would be in the differential as well. Clinically I do not feel he is in failure. EKG obtained arrival showed a sinus rhythm with rates per minute with frequent PVCs and nonspecific ST changes. He had evidence of LVH. CBC with differential, 6.5 with hemoglobin 12 and platelet count of 280. Chemistries unremarkable. Troponin T was 30 which is minimally elevated. Repeat 2-hour delta troponin was lower at 27. Patient was given a DuoNeb aerosol in the department and did have significant improvement in his breathing. I did give him a second albuterol as well. Started him on Solu-Medrol. Chest x-ray essentially unremarkable he had some mild vascular congestion. Lab Data Attestation: I reviewed the patient's lab results. Labs: Laboratory Results - last 24 hr 09/06/24 09/06/24 20:07 22:35 WBC 6.5 RBC 4.17 L Hgb 12.3 L Hct 36.2 L MCV 86.8 MCH 29.5 MCHC 34.0 RDW Std Deviation 46.1 H RDW Coeff of Nerissa 14.6 Plt Count 280 MPV 11.6 Immature Gran % (Auto) 0.500 Neut % (Auto) 51.2 Lymph % (Auto) 36.5 [place] % (Auto) 9.2 Eos % (Auto) 1.8 Baso % (Auto) 0.8 Absolute Neuts (auto) 3.4 Absolute Lymphs (auto) 2.39 Nucleated RBC % 0 Sodium 132 L Potassium 5.2 H Chloride 99 Carbon Dioxide 20.8 L Anion Gap 12 BUN 20 H Creatinine 0.96 Estim Creat Clear Calc 66.46 Est GFR (MDRD) Non-Af 86 BUN/Creatinine Ratio 20.9 H Glucose 131 H Calcium 9.4 Troponin T High Sens 30 H Troponin T Hi Sens 2 Hr 27 H Radiography Diagnostic Testing: Clinical Impression(s) from Imaging Studies Chest X-Ray 09/06/24 20:35 IMPRESSION: Mild pulmonary vascular congestion and interstitial edema. Mild cardiomegaly. Scattered reticular opacities may reflect atypical pneumonia. No large focal consolidations. Reading Location: [facility] 1 view chest x-ray obtained interpreted by myself is no evidence of infiltrate or pneumothorax or acute disease process. Radiology felt there was mild pulmonary vascular congestion and interstitial edema. Mild cardiomegaly. Scattered reticular opacities may reflect atypical pneumonia. EKG Initial EKG: Attestation: I personally reviewed and interpreted this EKG as follows: Comments: Sinus rhythm with ventricular rate of 83 bpm with occasional PACs and LVH Prior EKG tracings: available for review Prior: Unchanged Discharge Plan Triage Chief Complaint: Chest Pain ED Provider: Ileaan Mckeon Dx/Rx/DC Orders Clinical Impression: Dyspnea, Chest pain, COPD exacerbation Instructions: ED COPD Flare, ED Chest Pain, Uncertain Cause Prescriptions: New prednisone 20 mg tablet 20 mg PO BID Qty: 10 0RF levofloxacin 750 mg tablet 750 mg PO DAILY Qty: 6 0RF No Action morphine 15 mg tablet extended release 15 mg PO TID 30 Days Qty: 90 cyclosporine [Restasis] 0.05 % dropperette 1 drp OPHTHALMIC Q12H PRN (Reason: dry eye) Patient Comments: pt states he gets this otc when needed. atenolol 50 mg tablet 50 mg PO QDAY Qty: 30 11RF lisinopril 2.5 mg tablet 2.5 mg PO DAILY metoprolol succinate 25 mg tablet extended release 24 hr 25 mg PO QDAY omeprazole 40 mg capsule,delayed release(DR/EC) 40 mg PO QDAY Eliquis 5 mg tablet 5 mg PO BID spironolactone 25 mg tablet 25 mg PO QDAY torsemide 20 mg tablet 20 mg PO QAM albuterol sulfate 90 mcg/actuation HFA aerosol inhaler 1 puff INHALATION Q6H nicotine [Nicoderm CQ] 21 mg/24 hr patch 24 hour 1 patch transdermal DAILY atorvastatin 80 mg tablet 80 mg PO QHS aspirin [Adult Low Dose Aspirin] 81 mg tablet,delayed release (DR/EC) 81 mg PO DAILY tizanidine 2 mg tablet 2 mg PO TID cholecalciferol (vitamin D3) [Vitamin D3] 25 mcg (1,000 unit) capsule 25 mcg PO DAILY oxycodone [Roxicodone] 15 mg tablet 15 mg PO Q6H trazodone 50 mg tablet 100 mg PO QHS fluticasone propion-salmeterol [Advair HFA] 230-21 mcg/actuation HFA aerosol inhaler 2 puff inhalation BID Primary Care Provider: Joaquin Stanford Referrals: Joaquin Stanford MD [Primary Care Provider] - 3-5 Days Print Language: Faroese Disposition Disposition: Home, Self Care
--- NOTE | 2024-09-06 20:35 | RAD_ITS ---
PROCEDURE: CHEST 1 VIEW (PORTABLE) 09/06/2024 REASON FOR EXAM: CHEST PAIN TECHNIQUE: Frontal view of the chest. COMPARISON: 02/01/2023 FINDINGS: Mild pulmonary vascular congestion and interstitial edema. Mild cardiomegaly. Scattered reticular opacities may reflect atypical pneumonia. No large focal consolidations. No pleural effusion or pneumothorax. Median sternotomy wires. RAD/Chest 1 View (Portable) IMPRESSION: Mild pulmonary vascular congestion and interstitial edema. Mild cardiomegaly. Scattered reticular opacities may reflect atypical pneumonia. No large focal consolidations. Reading Location: [id number]
[2024-09-06] MEDS: Ipratropium/Albuterol Sulfate 3 ML AMPUL.NEB INHALATION (20:36)
[2024-09-06 20:52] LABS: Absolute Lymphocyte Count 2.39 X10^3/uL (0.83-4.51); Absolute Neutrophil Count 3.4 X10^3/uL (2.0-7.7); Basophil# 0.05 X10^3/uL; Basophil% 0.8 % (0-1); Eosinophil# 0.12 X10^3/uL; Eosinophils% 1.8 % (0-5); Hematocrit 36.2 % (40-54); Hemoglobin 12.3 g/dL (13.0-16.5); Lymphocyte # 2.39 X10^3/ul (0.83-4.51); Lymphocyte % 36.5 % (19-41); Mean Corpuscular Hgb 29.5 pg (27.0-32.0); Mean Corpuscular Volume 86.8 fL (80-94); Mean Platelet Vol. 11.6 fl (6.2-12.0); Monocyte% 9.2 % (0-10); NRBC Flagged by Analyzer 0 % (0-5); Neutrophil # 3.35 X10^3/uL (2.7-7.7); Neutrophil % 51.2 % (47-70); Platelet Count 280 K/mm3 (150-450); RBC Distribution Width CV 14.6 % (11.6-14.6); RBC Distribution Width SD 46.1 fl (35.1-43.9); Red Blood Count 4.17 M/mm3 (4.6-6.2); White Blood Count 6.5 K/mm3 (4.4-11.0)
[2024-09-06 21:25] LABS: Anion Gap 12 (5-15); BUN 20 mg/dL (4-19); BUN/Creat Ratio 20.9 RATIO (10-20); Calcium,Total 9.4 mg/dL (7.6-11.0); Carbon Dioxide 20.8 mmol/L (21.0-32.0); Chloride 99 mmol/L (98-108); Creatinine, Serum 0.96 mg/dL (0.70-1.20); EST Glomerular Filtration Rate 86 (>60); Estimated Creatinine Clearance 66.46 ml/min (50-250); Glucose 131 mg/dL (70-99); Potassium 5.2 mmol/L (3.3-5.1); Sodium Level 132 mmol/L (133-145); Troponin T High Sensitivity 30 ng/L (<=22)
[2024-09-06] MEDS: Albuterol 2.5 MG/3 ML VIAL.NEB. INHALATION (23:12)
[2024-09-06 23:13] LABS: Troponin T High Sens 2 HR 27 ng/L (<=22)
[2024-09-06] MEDS: MethylPREDNISolone 125 MG/2 ML Vial IV (23:18)
[2024-09-06] MEDS: levoFLOXacin 750 MG Tablet PO (23:30)
== END 2024-09-06 23:31 | disposition home or self-care (01) ==
PROVIDERS: Emergency Provider Emergency Medicine; PCP Family Medicine; Visit Provider Emergency Medicine
DX: J44.1 Chronic obstructive pulmonary disease with (acute) exacerbation (principal); I11.0 Hypertensive heart disease with heart failure; I50.20 Unspecified systolic (congestive) heart failure; I48.91 Unspecified atrial fibrillation; I49.3 Ventricular premature depolarization; R07.89 Other chest pain; I25.2 Old myocardial infarction; E78.5 Hyperlipidemia, unspecified; I25.10 Atherosclerotic heart disease of native coronary artery without angina pectoris; F41.9 Anxiety disorder, unspecified; F43.10 Post-traumatic stress disorder, unspecified; F17.210 Nicotine dependence, cigarettes, uncomplicated; Z95.1 Presence of aortocoronary bypass graft; Z86.73 Personal history of transient ischemic attack (TIA), and cerebral infarction without residual deficits; Z79.01 Long term (current) use of anticoagulants; Z79.82 Long term (current) use of aspirin; Z79.51 Long term (current) use of inhaled steroids; Z79.899 Other long term (current) drug therapy
CPT/HCPCS: 71045; 80048; 84484; 85025; 93005; 94640; 96374; 99283; A4216